=== PATIENT | female | born 1950 | race Caucasian/White ===

== ENCOUNTER 2021-11-12 11:27 | Outpatient (CLI) | payer MEDICARE, OTHER ==
[2021-11-13 08:59] LABS: SARS-CoV-2 PCR by NAA Not Detected (NotDetected)
== END 2021-11-12 11:28 | disposition home or self-care (01) ==
LOC: CSHLAB 11:27
PROVIDERS: ATTEND Internal Medicine Nephrology
DX: Z20.822 Contact with and (suspected) exposure to COVID-19 (principal)
CPT/HCPCS: U0003; U0005

== ENCOUNTER 2021-11-15 08:37 | Outpatient (CLI) | payer MEDICARE, OTHER | END 2021-11-15 08:38 | disposition home or self-care (01) | LOC: CSHRAD 08:37 | PROVIDERS: ATTEND Neurological Surgery | DX: R13.10 Dysphagia, unspecified (principal); K21.9 Gastro-esophageal reflux disease without esophagitis | CPT/HCPCS: 74220 ==

== ENCOUNTER 2021-11-21 11:33 | Outpatient (CLI) | payer MEDICARE, OTHER | END 2021-11-21 11:34 | disposition home or self-care (01) | LOC: CSHMAMMO 11:33 | PROVIDERS: ATTEND Family Medicine | DX: Z12.31 Encounter for screening mammogram for malignant neoplasm of breast (principal); Z85.528 Personal history of other malignant neoplasm of kidney | CPT/HCPCS: 77063; 77067 ==

== ENCOUNTER 2022-01-25 10:46 | Outpatient (CLI) | payer MEDICARE, OTHER | END 2022-01-25 10:47 | disposition home or self-care (01) | LOC: CSHMAMMO 10:46 | PROVIDERS: ATTEND Family Medicine | DX: Z13.820 Encounter for screening for osteoporosis (principal); Z78.0 Asymptomatic menopausal state; E28.39 Other primary ovarian failure; M85.851 Other specified disorders of bone density and structure, right thigh; M85.852 Other specified disorders of bone density and structure, left thigh | CPT/HCPCS: 77080 ==

== ENCOUNTER 2022-07-02 14:48 | Outpatient (CLI) | payer MEDICARE, OTHER | END 2022-07-02 14:49 | disposition home or self-care (01) | LOC: CSHULT 14:48 | PROVIDERS: ATTEND Urology | DX: C64.1 Malignant neoplasm of right kidney, except renal pelvis (principal) | CPT/HCPCS: 71046; 76770 ==

== ENCOUNTER 2023-07-14 08:19 | Outpatient (CLI) | payer MEDICARE, OTHER ==
[2023-07-14] MEDS ORDERED: Iopamidol 300 61% 100 ML VIAL FS ONE (09:25)
== END 2023-07-14 08:20 | disposition home or self-care (01) ==
LOC: CSHCT 08:19
PROVIDERS: ATTEND Urology
DX: C64.1 Malignant neoplasm of right kidney, except renal pelvis (principal)
CPT/HCPCS: 71046; 74178